=== PATIENT | male | born 1960 | race African-American/Black ===

== ENCOUNTER 2022-12-22 22:44 | Inpatient (IN) | payer OTHER ==
[2022-12-22] MEDS ORDERED: ERYTHROMYCIN 0.5% OPHTHALMIC OINTMENT 3.5 GM TUBE OU STA (23:43)
[2022-12-22] MEDS ORDERED: LACTATED RINGERS SOLUTION 1000 ML INFUS.BAG IV ONE (23:45)
[2022-12-23] MEDS ORDERED: VANCOMYCIN 1 GM in D5W (PRE-DOCKED) 1,000 MG/250 ML IVPB ONE
[2022-12-23] MEDS ORDERED: ERYTHROMYCIN 0.5% OPHTHALMIC OINTMENT 3.5 GM TUBE ONE (00:01)
[2022-12-23] MEDS ORDERED: PIPERACILLIN/TAZOB 4.5 GM 4.5 GM in DEXTROSE 5%-WATER 100 ML IVPB ONE (00:02)
[2022-12-23] MEDS ORDERED: ERYTHROMYCIN 0.5% OPHTHALMIC OINTMENT 3.5 GM TUBE OS STA (00:10)
[2022-12-23 00:43] LABS: BASO % 0.6 % (0-2.0); EOS % 0.2 % (0-4.5); HEMATOCRIT 34.4 % (35.4-49); HEMOGLOBIN 11.9 GM/dL (11.7-16.9); LYMPH % 13.8 % (8-40); MCH 30.1 pg (25.7-33.7); MCHC 34.7 g/dl (32.0-35.9); MEAN CELL VOLUME 86.6 fl (80-96); MEAN PLT VOLUME 7.6 fl (7.5-11.1); MONO % 8.5 % (3.8-10.2); NEUT % 76.9 % (42.8-82.8); PLATELET COUNT 514 10^3/uL (134-434); RBC 3.97 M/mm3 (4.00-5.60); RDW 14.7 % (11.9-15.9); WHITE BLOOD COUNT 9.2 K/mm3 (4.0-10.0)
[2022-12-23 00:50] LABS: INR 1.29 (0.83-1.09); PROTHROMBIN TIME (PATIENT) 14.9 SEC (9.7-13.0); VENOUS BASE EXCESS 1.9 mmol/L (-2-2); VENOUS O2 SATURATION 65.5 % (70-80); VENOUS PCO2 54.4 mmHg (38-52); VENOUS PH 7.34 (7.310-7.410)
[2022-12-23] MEDS ORDERED: VANCOMYCIN/WATER FOR INJ (PEG) 1,000 MG/200 ML BAG IVPB ONE ×2 (00:53→08:44)
[2022-12-23] MEDS ORDERED: PIPERACILLIN/TAZOB 4.5 GM 4.5 GM/100 ML BAG IVPB ONE ×3 (00:53→12:49)
[2022-12-23 01:07] LABS: ALBUMIN 2.6 g/dl (3.4-5.0); CALCIUM 8.9 mg/dL (8.5-10.1)
[2022-12-23 01:08] LABS: BLOOD UREA NITROGEN 14.1 mg/dL (7-18); MAGNESIUM 2.1 mg/dL (1.8-2.4)
[2022-12-23 01:11] LABS: CREATININE 0.4 mg/dL (0.55-1.3); PHOSPHOROUS 3.5 mg/dL (2.5-4.9)
[2022-12-23 01:13] LABS: BILIRUBIN,TOTAL 0.4 mg/dL (0.2-1); TOT PROT 8.4 g/dl (6.4-8.2)
[2022-12-23 02:44] LABS: PH,URINE 6.5 (5.0-8.0); URINE APPEARANCE CLOUDY; URINE BILIRUBIN NEGATIVE (NEGATIVE); URINE COLOR YELLOW; URINE GLUCOSE (UA) NEGATIVE (NEGATIVE); URINE KETONE NEGATIVE (NEGATIVE); URINE LEUK ESTERASE NEGATIVE (NEGATIVE); URINE NITRITE NEGATIVE (NEGATIVE); URINE PROTEIN NEGATIVE (NEGATIVE); URINE UROBILINOGEN 0.2 mg/dL (0.2-1.0)
[2022-12-23 03:03] LABS: CALCIUM 8.5 mg/dL (8.5-10.1)
[2022-12-23 03:04] LABS: BLOOD UREA NITROGEN 13.4 mg/dL (7-18)
[2022-12-23 03:07] LABS: CREATININE 0.4 mg/dL (0.55-1.3)
[2022-12-23] MEDS: DEXTROSE 5%-NORMAL SALINE 1,000 ML IV SCH (04:25)
[2022-12-23] MEDS ORDERED: PIPERACILLIN/TAZOB 4.5 GM 4.5 GM in DEXTROSE 5%-WATER 100 ML IVPB SCH (09:00)
[2022-12-23] MEDS ORDERED: ENOXAPARIN NA (PORCINE) 40 MG/0.4 ML DISP.SYRIN SQ SCH (11:30)
[2022-12-23] MEDS ORDERED: ACETAMINOPHEN 650 MG/20.3 ML ORAL SOLUTION (CUPS) GT PRN (12:15)
[2022-12-23] MEDS ORDERED: FLU VACC QS2022-23(6MOS UP)/PF 60 MCG/0.5 ML SYRINGE IM ONE (12:44)
[2022-12-23] MEDS ORDERED: PNEUMOC 20-VAL CONJ-DIP CRM/PF 0.5 ML SYRINGE IM ONE (12:44)
[2022-12-23] MEDS ORDERED: ENOXAPARIN NA (PORCINE) 40 MG/0.4 ML DISP.SYRIN SQ ONE (12:49)
[2022-12-23] MEDS ORDERED: CARBIDOPA/LEVODOPA 25/100 TABLET (FP) ONE ×3 (12:49→17:11)
[2022-12-23] MEDS ORDERED: APIXABAN 5 MG TABLET ONE (12:49)
[2022-12-23] MEDS: APIXABAN 5 MG TABLET GT SCH ×2 (13:10→21:46)
[2022-12-23] MEDS: CARBIDOPA/LEVODOPA 25/100 TABLET (FP) GT SCH ×3 (13:11→21:46)
[2022-12-23] MEDS: VANCOMYCIN/WATER FOR INJ (PEG) 1,000 MG/200 ML BAG IVPB SCH (14:20)
[2022-12-23] MEDS: PIPERACILLIN/TAZOB 4.5 GM 4.5 GM in DEXTROSE 5%-WATER 100 ML IVPB SCH (18:17)
[2022-12-23] MEDS: QUEtiapine FUMARATE 25 MG TABLET GT SCH (21:46)
[2022-12-23] MEDS: DOXEPIN HCL 25 MG CAPSULE GT SCH (23:12)
[2022-12-24] MEDS: PIPERACILLIN/TAZOB 4.5 GM 4.5 GM in DEXTROSE 5%-WATER 100 ML IVPB SCH ×2 (02:25→11:25)
[2022-12-24] MEDS: VANCOMYCIN/WATER FOR INJ (PEG) 1,000 MG/200 ML BAG IVPB SCH (03:28)
[2022-12-24] MEDS: DEXTROSE 5%-NORMAL SALINE 1,000 ML IV SCH (03:43)
[2022-12-24] MEDS: CARBIDOPA/LEVODOPA 25/100 TABLET (FP) GT SCH ×4 (10:35→22:09)
[2022-12-24] MEDS: APIXABAN 5 MG TABLET GT SCH ×2 (10:36→22:10)
[2022-12-24] MEDS: ASCORBIC ACID 250 MG TABLET (FP) GT SCH (10:36)
[2022-12-24] MEDS: CHOLECALCIFEROL (VIT D3) 1,000 UNIT (25 MCG) TABLET GT SCH (10:36)
[2022-12-24] MEDS ORDERED: VANCOMYCIN/WATER FOR INJ (PEG) 1,000 MG/200 ML BAG IVPB SCH (15:00)
[2022-12-24] MEDS: AMINO ACIDS/PROTEIN HYDROLYS 30 ML LIQUID.PKT PO SCH (17:15)
[2022-12-24] MEDS: QUEtiapine FUMARATE 25 MG TABLET GT SCH (22:09)
[2022-12-24] MEDS: DOXEPIN HCL 25 MG CAPSULE GT SCH (22:09)
[2022-12-24 23:02] VITALS: RESP 18
[2022-12-25] MEDS: DEXTROSE 5%-NORMAL SALINE 1,000 ML IV SCH (04:36)
[2022-12-25] MEDS: CARBIDOPA/LEVODOPA 25/100 TABLET (FP) GT SCH ×4 (08:15→21:46)
[2022-12-25] MEDS: AMINO ACIDS/PROTEIN HYDROLYS 30 ML LIQUID.PKT PO SCH (08:15)
[2022-12-25] MEDS ORDERED: ZINC SULFATE 220 MG CAPSULE (FP) PO SCH (10:00)
[2022-12-25] MEDS ORDERED: MULTIVITAMINS (DAILY MVI) TABLET (FP) PO SCH (10:00)
[2022-12-25] MEDS: ASCORBIC ACID 250 MG TABLET (FP) GT SCH (10:01)
[2022-12-25] MEDS: APIXABAN 5 MG TABLET GT SCH ×2 (10:02→21:47)
[2022-12-25] MEDS: CHOLECALCIFEROL (VIT D3) 1,000 UNIT (25 MCG) TABLET GT SCH (10:02)
[2022-12-25 10:03] LABS: BASO % 0.4 % (0-2.0); EOS % 1.2 % (0-4.5); HEMOGLOBIN 10.6 GM/dL (11.7-16.9); LYMPH % 19.1 % (8-40); MCH 29.4 pg (25.7-33.7); MCHC 34.2 g/dl (32.0-35.9); MEAN CELL VOLUME 86.2 fl (80-96); MEAN PLT VOLUME 7.8 fl (7.5-11.1); MONO % 14.1 % (3.8-10.2); NEUT % 65.2 % (42.8-82.8); PLATELET COUNT 457 10^3/uL (134-434); RDW 14.6 % (11.9-15.9); WHITE BLOOD COUNT 4.5 K/mm3 (4.0-10.0)
[2022-12-25 10:30] LABS: CALCIUM 8.7 mg/dL (8.5-10.1)
[2022-12-25 10:31] LABS: ALBUMIN 2.5 g/dl (3.4-5.0); BLOOD UREA NITROGEN 11.9 mg/dL (7-18); MAGNESIUM 2.1 mg/dL (1.8-2.4)
[2022-12-25 10:34] LABS: CREATININE 0.4 mg/dL (0.55-1.3)
[2022-12-25 10:37] LABS: BILIRUBIN,TOTAL 0.3 mg/dL (0.2-1)
[2022-12-25] MEDS ORDERED: MULTIVIT-MINERALS ORAL LIQUID PO SCH (12:18)
[2022-12-25] MEDS: AMINO ACIDS/PROTEIN HYDROLYS 30 ML LIQUID.PKT GT SCH (17:12)
[2022-12-25] MEDS: DOXEPIN HCL 25 MG CAPSULE GT SCH (21:47)
[2022-12-25] MEDS: QUEtiapine FUMARATE 25 MG TABLET GT SCH (21:47)
[2022-12-26] MEDS: CARBIDOPA/LEVODOPA 25/100 TABLET (FP) GT SCH ×4 (08:28→22:53)
[2022-12-26] MEDS: AMINO ACIDS/PROTEIN HYDROLYS 30 ML LIQUID.PKT GT SCH ×2 (08:29→17:36)
[2022-12-26] MEDS: MULTIVIT-MINERALS ORAL LIQUID GT SCH (10:13)
[2022-12-26] MEDS: ZINC SULFATE 220 MG CAPSULE (FP) GT SCH (10:13)
[2022-12-26] MEDS: ASCORBIC ACID 500 MG/5 ML UNIT DOSE CUP GT SCH (10:14)
[2022-12-26] MEDS: APIXABAN 5 MG TABLET GT SCH ×2 (10:14→22:53)
[2022-12-26] MEDS: COLLAGENASE CLOSTRIDIUM HIST. 30 GRAMS TUBE TP SCH (10:45)
[2022-12-26] MEDS: DEXTROSE 5%-NORMAL SALINE 1,000 ML IV SCH (12:24)
[2022-12-26] MEDS: CHOLECALCIFEROL (VIT D SOLUTION) 400 UNIT/1 ML DROPS GT SCH (14:27)
[2022-12-26] MEDS: QUEtiapine FUMARATE 25 MG TABLET GT SCH (22:53)
[2022-12-26] MEDS: DOXEPIN HCL 25 MG CAPSULE GT SCH (22:53)
[2022-12-27] MEDS: DEXTROSE 5%-NORMAL SALINE 1,000 ML IV SCH (04:22)
[2022-12-27 08:04] LABS: BASO % 0.8 % (0-2.0); HEMATOCRIT 33.8 % (35.4-49); HEMOGLOBIN 11.2 GM/dL (11.7-16.9); LYMPH % 19.9 % (8-40); MCH 28.8 pg (25.7-33.7); MCHC 33.3 g/dl (32.0-35.9); MEAN CELL VOLUME 86.6 fl (80-96); MEAN PLT VOLUME 8.2 fl (7.5-11.1); MONO % 8.5 % (3.8-10.2); NEUT % 69.8 % (42.8-82.8); PLATELET COUNT 486 10^3/uL (134-434); RDW 14.9 % (11.9-15.9); WHITE BLOOD COUNT 4.9 K/mm3 (4.0-10.0)
[2022-12-27 08:21] LABS: BLOOD UREA NITROGEN 12.5 mg/dL (7-18); CALCIUM 9.1 mg/dL (8.5-10.1)
[2022-12-27 08:25] LABS: CREATININE 0.4 mg/dL (0.55-1.3)
[2022-12-27] MEDS: AMINO ACIDS/PROTEIN HYDROLYS 30 ML LIQUID.PKT GT SCH ×2 (09:01→18:26)
[2022-12-27] MEDS: CARBIDOPA/LEVODOPA 25/100 TABLET (FP) GT SCH ×4 (09:01→21:44)
[2022-12-27] MEDS: ZINC SULFATE 220 MG CAPSULE (FP) GT SCH (10:12)
[2022-12-27] MEDS: APIXABAN 5 MG TABLET GT SCH ×2 (10:12→21:43)
[2022-12-27] MEDS: MULTIVIT-MINERALS ORAL LIQUID GT SCH (10:26)
[2022-12-27] MEDS: CHOLECALCIFEROL (VIT D SOLUTION) 400 UNIT/1 ML DROPS GT SCH (10:27)
[2022-12-27] MEDS: ASCORBIC ACID 500 MG/5 ML UNIT DOSE CUP GT SCH (10:27)
[2022-12-27] MEDS: COLLAGENASE CLOSTRIDIUM HIST. 30 GRAMS TUBE TP SCH (10:27)
[2022-12-27] MEDS: DOXEPIN HCL 25 MG CAPSULE GT SCH (21:43)
[2022-12-27] MEDS: QUEtiapine FUMARATE 25 MG TABLET GT SCH (21:44)
[2022-12-27 23:14] VITALS: BMI 15.7
[2022-12-28] MEDS: ZINC SULFATE 220 MG CAPSULE (FP) GT SCH (09:50)
[2022-12-28] MEDS: CARBIDOPA/LEVODOPA 25/100 TABLET (FP) GT SCH ×4 (09:50→21:02)
[2022-12-28] MEDS: APIXABAN 5 MG TABLET GT SCH ×2 (09:50→21:01)
[2022-12-28] MEDS: MULTIVIT-MINERALS ORAL LIQUID GT SCH (09:51)
[2022-12-28] MEDS: AMINO ACIDS/PROTEIN HYDROLYS 30 ML LIQUID.PKT GT SCH ×2 (09:51→17:10)
[2022-12-28] MEDS: ASCORBIC ACID 500 MG/5 ML UNIT DOSE CUP GT SCH (09:52)
[2022-12-28] MEDS: CHOLECALCIFEROL (VIT D SOLUTION) 400 UNIT/1 ML DROPS GT SCH (09:52)
[2022-12-28] MEDS: COLLAGENASE CLOSTRIDIUM HIST. 30 GRAMS TUBE TP SCH (09:52)
[2022-12-28 10:48] LABS: HEMATOCRIT 32.4 % (35.4-49); MCH 29.5 pg (25.7-33.7); MCHC 34.1 g/dl (32.0-35.9); MEAN CELL VOLUME 86.6 fl (80-96); MEAN PLT VOLUME 8.1 fl (7.5-11.1); PLATELET COUNT 473 10^3/uL (134-434); RBC 3.74 M/mm3 (4.00-5.60); RDW 14.6 % (11.9-15.9); RETICULOCYTES 1.37 % (0.5-1.5); WHITE BLOOD COUNT 4.5 K/mm3 (4.0-10.0)
[2022-12-28 11:08] LABS: MAGNESIUM 2.2 mg/dL (1.8-2.4)
[2022-12-28 11:12] LABS: CREATININE 0.4 mg/dL (0.55-1.3); PHOSPHOROUS 3.4 mg/dL (2.5-4.9)
[2022-12-28] MEDS: QUEtiapine FUMARATE 25 MG TABLET GT SCH (21:02)
[2022-12-28] MEDS: DOXEPIN HCL 25 MG CAPSULE GT SCH (21:02)
[2022-12-28 22:09] VITALS: BP 91/64; PULSE 88; TEMP 97.4
== END 2022-12-28 22:15 | DRG 42 ==
LOC: JER 22:44 → JERBED 12-23 02:44 → INTOOBSV 12-23 02:44 → J6S 12-23 17:34 → OBSVTOIN 12-28 12:27
PROVIDERS: ADMIT Internal Medicine; ATTEND Internal Medicine
DX: G20 Parkinson's disease (principal); E43 Unspecified severe protein-calorie malnutrition; F03.918 Unspecified dementia, unspecified severity, with other behavioral disturbance; L89.93 Pressure ulcer of unspecified site, stage 3; E11.22 Type 2 diabetes mellitus with diabetic chronic kidney disease; E11.649 Type 2 diabetes mellitus with hypoglycemia without coma; E87.1 Hypo-osmolality and hyponatremia; F20.9 Schizophrenia, unspecified; D64.9 Anemia, unspecified; F41.9 Anxiety disorder, unspecified; Z74.01 Bed confinement status; R64 Cachexia; Z68.1 Body mass index [BMI] 19.9 or less, adult; D75.839 Thrombocytosis, unspecified
CPT/HCPCS: 0241U-QW; 36415; 70450-TC; 71045-TC-FY; 72170-TC-FY; 74230-TC-FY; 80048; 80053; 81003; 82803; 83605; 83735; 83935; 84100; 84300; 84484; 85025; 85027; 85045; 85610; 85730; 87040; 87086; 92611-GN; 93005; 93010; 99285-25; G0378

== ENCOUNTER 2023-05-16 17:38 | Inpatient (IN) | payer OTHER ==
[2023-05-16 17:57] VITALS: BMI 20.5
[2023-05-16 20:18] LABS: BASO % 0.4 % (0-2.0); EOS % 0.1 % (0-4.5); HEMATOCRIT 33.1 % (35.4-49); HEMOGLOBIN 10.9 GM/dL (11.7-16.9); LYMPH % 12.4 % (8-40); MCH 27.9 pg (25.7-33.7); MCHC 32.9 g/dl (32.0-35.9); MEAN CELL VOLUME 84.7 fl (80-96); MEAN PLT VOLUME 7.5 fl (7.5-11.1); NEUT % 80.1 % (42.8-82.8); PLATELET COUNT 469 10^3/uL (134-434); RBC 3.91 M/mm3 (4.00-5.60); RDW 16.9 % (11.9-15.9); WHITE BLOOD COUNT 7.5 K/mm3 (4.0-10.0)
[2023-05-16 20:41] LABS: CHLORIDE 98 mmol/L (98-107); POTASSIUM 4.6 mmol/L (3.5-5.1); SODIUM 134 mmol/L (136-145)
[2023-05-16 20:43] LABS: ANION GAP 4 MMOL/L (8-16); CALCIUM 9.3 mg/dL (8.5-10.1); CO2 32 mmol/L (21-32)
[2023-05-16 20:44] LABS: ALBUMIN 2.4 g/dl (3.4-5.0); GLUCOSE,RANDOM 93 mg/dL (74-106)
[2023-05-16 20:47] LABS: CREATININE 0.4 mg/dL (0.55-1.3); SGOT/AST 23 U/L (15-37); SGPT/ALT 21 U/L (13-61)
[2023-05-16 20:48] LABS: BILIRUBIN,TOTAL < 0.1 mg/dL (0.2-1); TOT PROT 8.5 g/dl (6.4-8.2)
[2023-05-16] MEDS ORDERED: DIPHTH,PERTUSS(ACELL),TET 0.5 ML DISP.SYRIN IM ONE ×2 (20:49→22:41)
[2023-05-16 20:50] LABS: ALK PHOS 111 U/L (45-117)
[2023-05-16] MEDS ORDERED: DOXEPIN HCL 25 MG CAPSULE PO ONE (21:55)
[2023-05-16] MEDS ORDERED: traMADol HCL 50 MG TABLET NGT STA (21:56)
[2023-05-16] MEDS ORDERED: DOXEPIN HCL 10 MG/ML NGT STA (21:58)
[2023-05-16] MEDS ORDERED: DOXEPIN HCL 10 MG/ML PO ONE (22:00)
[2023-05-16] MEDS ORDERED: DOXEPIN HCL 10 MG/ML GT ONE (22:15)
[2023-05-16] MEDS ORDERED: PIPERACILLIN/TAZOB 4.5 GM 4.5 GM in DEXTROSE 5%-WATER 100 ML IVPB ONE (22:41)
[2023-05-16] MEDS ORDERED: traMADol HCL 50 MG TABLET ONE (22:41)
[2023-05-16] MEDS ORDERED: VANCOMYCIN 1 GM in D5W (PRE-DOCKED) 1,000 MG/250 ML (RESTRICTED TO ID ONLY IVPB ONE (22:41)
[2023-05-16] MEDS ORDERED: PIPERACILLIN/TAZOB 4.5 GM 4.5 GM/100 ML BAG IVPB ONE (23:18)
[2023-05-16] MEDS ORDERED: VANCOMYCIN/WATER FOR INJ (PEG) 1,000 MG/200 ML BAG IVPB ONE (23:18)
[2023-05-16] MEDS ORDERED: SODIUM CHLORIDE 1,000 ML IV SCH (23:45)
[2023-05-17] MEDS ORDERED: traMADol HCL 50 MG TABLET PEG PRN ×2 (01:12→01:27)
[2023-05-17] MEDS ORDERED: BISACODYL 10 MG SUPP.RECT PR PRN (01:14)
[2023-05-17] MEDS ORDERED: MAGNESIUM HYDROX 2400MG/30ML ORAL SUSPENSION 30 ML CUP PO PRN (01:16)
[2023-05-17] MEDS ORDERED: ACETAMINOPHEN 650 MG/20.3 ML ORAL SOLUTION (CUPS) PO PRN (01:25)
[2023-05-17 01:40] LABS: EPI CELLS 6 /uL (0-25.1); HYALINE CASTS 0 /uL (0-3.1); URINE APPEARANCE TURBID; URINE BACTERIA 106 /uL (0-1359); URINE BILIRUBIN NEGATIVE (NEGATIVE); URINE COLOR YELLOW; URINE GLUCOSE (UA) NEGATIVE (NEGATIVE); URINE KETONE NEGATIVE (NEGATIVE); URINE LEUK ESTERASE TRACE (NEGATIVE); URINE NITRITE NEGATIVE (NEGATIVE); URINE PROTEIN NEGATIVE (NEGATIVE); URINE RBC 11 /uL (0-23.9); URINE WBC 14 /uL (0-25.8)
[2023-05-17 07:10] LABS: BASO % 0.7 % (0-2.0); EOS % 0.5 % (0-4.5); HEMATOCRIT 33.6 % (35.4-49); HEMOGLOBIN 10.7 GM/dL (11.7-16.9); LYMPH % 22.3 % (8-40); MCH 27.8 pg (25.7-33.7); MCHC 31.8 g/dl (32.0-35.9); MEAN CELL VOLUME 87.4 fl (80-96); MEAN PLT VOLUME 8.3 fl (7.5-11.1); MONO % 8.9 % (3.8-10.2); NEUT % 67.6 % (42.8-82.8); PLATELET COUNT 411 10^3/uL (134-434); RBC 3.85 M/mm3 (4.00-5.60); RDW 16.9 % (11.9-15.9); WHITE BLOOD COUNT 4.5 K/mm3 (4.0-10.0)
[2023-05-17 07:20] LABS: INR 1.32 (0.83-1.09); PROTHROMBIN TIME (PATIENT) 15.3 SEC (9.7-13.0)
[2023-05-17 07:23] LABS: ACTIVATED PTT 35.9 SECONDS (25.2-36.5)
[2023-05-17 07:26] LABS: POTASSIUM 4.3 mmol/L (3.5-5.1)
[2023-05-17 07:46] LABS: BLOOD UREA NITROGEN 17.9 mg/dL (7-18); CALCIUM 9.1 mg/dL (8.5-10.1); MAGNESIUM 2.1 mg/dL (1.8-2.4)
[2023-05-17 07:49] LABS: CREATININE 0.5 mg/dL (0.55-1.3); PHOSPHOROUS 3.4 mg/dL (2.5-4.9)
[2023-05-17] MEDS ORDERED: DOXEPIN HCL 25 MG CAPSULE GT SCH (10:00)
[2023-05-17] MEDS ORDERED: VANCOMYCIN 1 GM in D5W (PRE-DOCKED) 1,000 MG/250 ML (RESTRICTED TO ID ONLY IVPB SCH (10:00)
[2023-05-17] MEDS: PIPERACILLIN/TAZOB 3.375 GM 3.375 GM in DEXTROSE 5%-WATER - 50 ML IVPB SCH ×3 (10:34→21:28)
[2023-05-17] MEDS: CARBIDOPA/LEVODOPA 25/100 TABLET (FP) GT SCH ×4 (10:42→21:30)
[2023-05-17] MEDS: ASCORBIC ACID 250 MG TABLET (FP) GT SCH (10:43)
[2023-05-17] MEDS: ZINC SULFATE 220 MG CAPSULE (FP) GT SCH (10:43)
[2023-05-17] MEDS: CHOLECALCIFEROL (VIT D3) 1,000 UNIT (25 MCG) TABLET GT SCH (10:43)
[2023-05-17] MEDS: APIXABAN 5 MG TABLET GT SCH ×2 (10:43→21:31)
[2023-05-17] MEDS: DOCUSATE NA 100 MG/10 ML UNIT-DOSE CUPS GT SCH ×2 (10:43→21:29)
[2023-05-17] MEDS: SENNOSIDES 8.8 MG/5 ML SYRUP GT SCH ×2 (11:47→21:29)
[2023-05-17] MEDS: MULTIVIT-MINERALS ORAL LIQUID GT SCH (11:48)
[2023-05-17] MEDS ORDERED: VANCOMYCIN 1 GM/200 ML PREMIX BAG (RESTRICTED TO ID ONLY) IVPB SCH (12:00)
[2023-05-17] MEDS: OLANZapine 2.5 MG TABLET GT SCH ×2 (13:49→22:50)
[2023-05-17] MEDS: DOXEPIN HCL 25 MG CAPSULE GT SCH (22:50)
[2023-05-17] MEDS: SENNOSIDES 8.8 MG/5 ML BULK BOTTLE GT SCH (23:22)
[2023-05-18] MEDS: PIPERACILLIN/TAZOB 3.375 GM 3.375 GM in DEXTROSE 5%-WATER - 50 ML IVPB SCH ×4 (03:37→22:16)
[2023-05-18] MEDS: ZINC SULFATE 220 MG CAPSULE (FP) GT SCH (10:18)
[2023-05-18] MEDS: ASCORBIC ACID 250 MG TABLET (FP) GT SCH (10:18)
[2023-05-18] MEDS: DOCUSATE NA 100 MG/10 ML UNIT-DOSE CUPS GT SCH ×2 (10:18→22:16)
[2023-05-18] MEDS: CARBIDOPA/LEVODOPA 25/100 TABLET (FP) GT SCH ×4 (10:18→22:17)
[2023-05-18] MEDS: SENNOSIDES 8.8 MG/5 ML BULK BOTTLE GT SCH ×2 (10:18→22:17)
[2023-05-18] MEDS: APIXABAN 5 MG TABLET GT SCH ×2 (10:18→22:17)
[2023-05-18] MEDS: CHOLECALCIFEROL (VIT D3) 1,000 UNIT (25 MCG) TABLET GT SCH (10:18)
[2023-05-18] MEDS: OLANZapine 2.5 MG TABLET GT SCH (10:18)
[2023-05-18] MEDS: MULTIVIT-MINERALS ORAL LIQUID GT SCH (10:21)
[2023-05-18] MEDS ORDERED: LORazepam 2 MG/ML SDV VIAL IVPUSH PRN (12:53)
[2023-05-18] MEDS: COLLAGENASE CLOSTRIDIUM HIST. 30 GRAMS TUBE TP SCH (14:52)
[2023-05-18] MEDS: OLANZapine 5 MG TABLET GT SCH (22:17)
[2023-05-18] MEDS: DOXEPIN HCL 25 MG CAPSULE GT SCH (22:18)
[2023-05-19] MEDS: PIPERACILLIN/TAZOB 3.375 GM 3.375 GM in DEXTROSE 5%-WATER - 50 ML IVPB SCH ×4 (03:01→22:50)
[2023-05-19 07:52] LABS: BASO % 0.8 % (0-2.0); EOS % 0.6 % (0-4.5); HEMATOCRIT 35.7 % (35.4-49); HEMOGLOBIN 11.4 GM/dL (11.7-16.9); LYMPH % 23.5 % (8-40); MCHC 31.9 g/dl (32.0-35.9); MEAN CELL VOLUME 87.8 fl (80-96); MEAN PLT VOLUME 8.6 fl (7.5-11.1); MONO % 7.8 % (3.8-10.2); NEUT % 67.3 % (42.8-82.8); PLATELET COUNT 441 10^3/uL (134-434); RBC 4.06 M/mm3 (4.00-5.60); WHITE BLOOD COUNT 4.2 K/mm3 (4.0-10.0)
[2023-05-19 08:20] LABS: BLOOD UREA NITROGEN 13.3 mg/dL (7-18); CALCIUM 9.3 mg/dL (8.5-10.1)
[2023-05-19 08:21] LABS: ALBUMIN 2.5 g/dl (3.4-5.0)
[2023-05-19 08:24] LABS: CREATININE 0.6 mg/dL (0.55-1.3)
[2023-05-19 08:25] LABS: BILIRUBIN,TOTAL 0.2 mg/dL (0.2-1); TOT PROT 8.6 g/dl (6.4-8.2)
[2023-05-19] MEDS: APIXABAN 5 MG TABLET GT SCH ×2 (10:00→22:50)
[2023-05-19] MEDS: ASCORBIC ACID 250 MG TABLET (FP) GT SCH (11:00)
[2023-05-19] MEDS: DOCUSATE NA 100 MG/10 ML UNIT-DOSE CUPS GT SCH ×2 (11:00→22:50)
[2023-05-19] MEDS: SENNOSIDES 8.8 MG/5 ML BULK BOTTLE GT SCH ×2 (11:00→22:50)
[2023-05-19] MEDS: OLANZapine 5 MG TABLET GT SCH ×2 (11:00→22:50)
[2023-05-19] MEDS: CARBIDOPA/LEVODOPA 25/100 TABLET (FP) GT SCH ×4 (11:00→22:50)
[2023-05-19] MEDS: ZINC SULFATE 220 MG CAPSULE (FP) GT SCH (11:00)
[2023-05-19] MEDS: MULTIVIT-MINERALS ORAL LIQUID GT SCH (11:00)
[2023-05-19] MEDS: CHOLECALCIFEROL (VIT D3) 1,000 UNIT (25 MCG) TABLET GT SCH (11:00)
[2023-05-19] MEDS: COLLAGENASE CLOSTRIDIUM HIST. 30 GRAMS TUBE TP SCH (13:20)
[2023-05-19] MEDS ORDERED: BISACODYL 10 MG SUPP.RECT PR PRN (19:08)
[2023-05-19] MEDS ORDERED: ACETAMINOPHEN 650 MG/20.3 ML ORAL SOLUTION (CUPS) PO PRN (19:08)
[2023-05-19] MEDS ORDERED: MAGNESIUM HYDROX 2400MG/30ML ORAL SUSPENSION 30 ML CUP PO PRN (19:08)
[2023-05-19] MEDS ORDERED: traMADol HCL 50 MG TABLET PEG PRN (19:08)
[2023-05-19] MEDS: DOXEPIN HCL 25 MG CAPSULE GT SCH (22:50)
[2023-05-20] MEDS: PIPERACILLIN/TAZOB 3.375 GM 3.375 GM in DEXTROSE 5%-WATER - 50 ML IVPB SCH ×4 (03:49→21:40)
[2023-05-20] MEDS: SENNOSIDES 8.8 MG/5 ML BULK BOTTLE GT SCH ×2 (10:55→22:48)
[2023-05-20] MEDS: ASCORBIC ACID 250 MG TABLET (FP) GT SCH (10:58)
[2023-05-20] MEDS: CARBIDOPA/LEVODOPA 25/100 TABLET (FP) GT SCH ×4 (10:59→22:41)
[2023-05-20] MEDS: CHOLECALCIFEROL (VIT D3) 1,000 UNIT (25 MCG) TABLET GT SCH (10:59)
[2023-05-20] MEDS: ZINC SULFATE 220 MG CAPSULE (FP) GT SCH (10:59)
[2023-05-20] MEDS: MULTIVIT-MINERALS ORAL LIQUID GT SCH (11:35)
[2023-05-20] MEDS: DOCUSATE NA 100 MG/10 ML UNIT-DOSE CUPS GT SCH ×2 (11:44→22:41)
[2023-05-20] MEDS: APIXABAN 5 MG TABLET GT SCH ×2 (11:44→22:41)
[2023-05-20] MEDS: OLANZapine 5 MG TABLET GT SCH ×2 (11:45→22:42)
[2023-05-20] MEDS: COLLAGENASE CLOSTRIDIUM HIST. 30 GRAMS TUBE TP SCH (13:12)
[2023-05-20] MEDS: AMINO ACIDS/PROTEIN HYDROLYS 30 ML LIQUID.PKT GT SCH (18:27)
[2023-05-20] MEDS: DOXEPIN HCL 25 MG CAPSULE GT SCH (22:46)
[2023-05-21] MEDS: PIPERACILLIN/TAZOB 3.375 GM 3.375 GM in DEXTROSE 5%-WATER - 50 ML IVPB SCH ×4 (03:21→20:49)
[2023-05-21] MEDS: AMINO ACIDS/PROTEIN HYDROLYS 30 ML LIQUID.PKT GT SCH (09:52)
[2023-05-21] MEDS: DOCUSATE NA 100 MG/10 ML UNIT-DOSE CUPS GT SCH ×2 (09:52→21:41)
[2023-05-21] MEDS: CHOLECALCIFEROL (VIT D3) 1,000 UNIT (25 MCG) TABLET GT SCH (09:53)
[2023-05-21] MEDS: ASCORBIC ACID 250 MG TABLET (FP) GT SCH (09:53)
[2023-05-21] MEDS: CARBIDOPA/LEVODOPA 25/100 TABLET (FP) GT SCH ×4 (09:53→21:41)
[2023-05-21] MEDS: OLANZapine 5 MG TABLET GT SCH ×2 (09:53→21:43)
[2023-05-21] MEDS: APIXABAN 5 MG TABLET GT SCH ×2 (09:53→21:43)
[2023-05-21] MEDS: SENNOSIDES 8.8 MG/5 ML BULK BOTTLE GT SCH ×2 (09:54→21:41)
[2023-05-21] MEDS: ZINC SULFATE 220 MG CAPSULE (FP) GT SCH (09:54)
[2023-05-21] MEDS: MULTIVIT-MINERALS ORAL LIQUID GT SCH (09:56)
[2023-05-21] MEDS: COLLAGENASE CLOSTRIDIUM HIST. 30 GRAMS TUBE TP SCH (09:58)
[2023-05-21] MEDS: DOXEPIN HCL 25 MG CAPSULE GT SCH (21:43)
[2023-05-22 02:16] VITALS: RESP 18
[2023-05-22] MEDS: PIPERACILLIN/TAZOB 3.375 GM 3.375 GM in DEXTROSE 5%-WATER - 50 ML IVPB SCH ×2 (03:00→10:07)
[2023-05-22] MEDS: SENNOSIDES 8.8 MG/5 ML BULK BOTTLE GT SCH (10:06)
[2023-05-22] MEDS: DOCUSATE NA 100 MG/10 ML UNIT-DOSE CUPS GT SCH (10:07)
[2023-05-22] MEDS: CHOLECALCIFEROL (VIT D3) 1,000 UNIT (25 MCG) TABLET GT SCH (10:08)
[2023-05-22] MEDS: APIXABAN 5 MG TABLET GT SCH (10:08)
[2023-05-22] MEDS: AMINO ACIDS/PROTEIN HYDROLYS 30 ML LIQUID.PKT GT SCH (10:08)
[2023-05-22] MEDS: ZINC SULFATE 220 MG CAPSULE (FP) GT SCH (10:08)
[2023-05-22] MEDS: ASCORBIC ACID 250 MG TABLET (FP) GT SCH (10:08)
[2023-05-22] MEDS: MULTIVIT-MINERALS ORAL LIQUID GT SCH (10:08)
[2023-05-22] MEDS: OLANZapine 5 MG TABLET GT SCH (10:09)
[2023-05-22] MEDS: COLLAGENASE CLOSTRIDIUM HIST. 30 GRAMS TUBE TP SCH (10:09)
[2023-05-22] MEDS: CARBIDOPA/LEVODOPA 25/100 TABLET (FP) GT SCH (10:09)
[2023-05-22 15:09] VITALS: BP 100/75; PULSE 88; TEMP 97.4
== END 2023-05-22 15:45 | DRG 139 ==
LOC: JER 17:38 → JERBED 23:32 → J4W 05-17 03:14 → J8W 05-19 18:12
PROVIDERS: ADMIT Internal Medicine; ATTEND Internal Medicine
DX: J18.9 Pneumonia, unspecified organism (principal); G20 Parkinson's disease; E43 Unspecified severe protein-calorie malnutrition; L89.153 Pressure ulcer of sacral region, stage 3; L89.223 Pressure ulcer of left hip, stage 3; R53.2 Functional quadriplegia; F20.9 Schizophrenia, unspecified; R13.10 Dysphagia, unspecified; E88.09 Other disorders of plasma-protein metabolism, not elsewhere classified; F03.90 Unspecified dementia, unspecified severity, without behavioral disturbance, psychotic disturbance, mood disturbance, and anxiety; E11.22 Type 2 diabetes mellitus with diabetic chronic kidney disease; N18.9 Chronic kidney disease, unspecified; S00.83XA Contusion of other part of head, initial encounter; R64 Cachexia; F41.9 Anxiety disorder, unspecified; E11.9 Type 2 diabetes mellitus without complications; D75.839 Thrombocytosis, unspecified; E87.1 Hypo-osmolality and hyponatremia; E86.0 Dehydration; E46 Unspecified protein-calorie malnutrition; Z74.01 Bed confinement status; Z91.81 History of falling; Z93.1 Gastrostomy status; Z68.1 Body mass index [BMI] 19.9 or less, adult; W18.30XA Fall on same level, unspecified, initial encounter; Y92.098 Other place in other non-institutional residence as the place of occurrence of the external cause
CPT/HCPCS: 36415; 70450-TC; 71045-TC-FY; 72125-TC; 72170-TC-FY; 80048; 80053; 81003; 82962; 83735; 84100; 84484; 85025; 85610; 85730; 87077; 87081; 87086; 87635; 90715; 93005; 93010; 99285-25; E0186